=== PATIENT | male | born 1955 | race American Indian/Alaskan Native ===

== ENCOUNTER 2017-07-01 11:29 | Emergency (ER) | payer SELFPAY ==
[2017-07-01 11:54] VITALS: BP 112/73
[2017-07-01] MEDS ORDERED: NORCO 5/325 PO ONE (14:28)
[2017-07-01] MEDS ORDERED: ZOFRAN ODT PO ONE (14:28)
--- NOTE | 2017-07-01 14:28 | Emergency Department Report ---
ED Back Pain/Injury HPI - General Chief Complaint: Back Pain/Injury Stated Complaint: KNEES/WAIST/BACK PAIN Time Seen by Provider: 07/01/17 13:45 Source: patient Limitations: No Limitations - History of Present Illness Initial Comments: 61-year-old male past medical history GERD, peptic ulcer presents with complaint of chronic hand and bilateral knee pain. States that his hands and knees have been aching him to have intermittent swelling. Denies fevers or chills denies any direct trauma. Patient is awake alert and oriented 3 states he cannot take NSAIDs because he has an ulcer. 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 Patient is ambulatory without assistance Onset/Timin -: year(s) Similar Symptoms Previously: Yes Place: home, work Severity: moderate Severity scale (0 -10): 5 Quality: aching Consistency: intermittent - Related Data Previous Rx's Medication Instructions Recorded Last Taken Type Acetaminophen 500 mg PO Q6H PRN #30 capsule 07/01/17 Unknown Rx traMADol [Ultram 50 MG tab] 50 mg PO Q6HR PRN #8 tablet 07/01/17 Unknown Rx Allergies Allergy/AdvReac Type Severity Reaction Status Date / Time aspirin Allergy Hives Verified 07/01/17 11:51 ED Review of Systems ROS: Stated complaint: KNEES/WAIST/BACK PAIN Other details as noted in HPI Constitutional: denies: chills, fever Eyes: denies: eye pain, eye discharge, vision change ENT: denies: ear pain, throat pain Respiratory: denies: cough, shortness of breath, wheezing Cardiovascular: denies: chest pain, palpitations Endocrine: no symptoms reported Gastrointestinal: denies: abdominal pain, nausea, diarrhea Genitourinary: denies: urgency, dysuria Musculoskeletal: as per HPI, joint swelling, arthralgia. denies: back pain Skin: denies: rash, lesions Neurological: denies: headache, weakness, paresthesias Psychiatric: denies: anxiety, depression Hematological/Lymphatic: denies: easy bleeding, easy bruising ED Past Medical Hx - Past Medical History Previous Medical History?: No - Surgical History Past Surgical History?: No - Social History Smoking Status: Never Smoker Substance Use Type: None - Medications Home Medications: Home Medications Medication Instructions Recorded Confirmed Last Taken Type Acetaminophen 500 mg PO Q6H PRN #30 capsule 07/01/17 Unknown Rx traMADol [Ultram 50 MG tab] 50 mg PO Q6HR PRN #8 tablet 07/01/17 Unknown Rx ED Physical Exam - General Limitations: No Limitations General appearance: alert, in no apparent distress - Head Head exam: Present: atraumatic, normocephalic - Eye Eye exam: Present: normal appearance, PERRL, EOMI - ENT ENT exam: Present: mucous membranes moist - Neck Neck exam: Present: normal inspection - Respiratory Respiratory exam: Present: normal lung sounds bilaterally. Absent: respiratory distress - Cardiovascular Cardiovascular Exam: Present: regular rate, normal rhythm. Absent: systolic murmur, diastolic murmur, rubs, gallop - GI/Abdominal GI/Abdominal exam: Present: soft, normal bowel sounds - Rectal Rectal exam: Present: deferred - Extremities Exam Extremities exam: Present: normal inspection, tenderness (bilateral hand and knee pain) - Back Exam Back exam: Present: normal inspection - Neurological Exam Neurological exam: Present: alert, oriented X3, CN II-XII intact, normal gait - Psychiatric Psychiatric exam: Present: normal affect, normal mood - Skin Skin exam: Present: warm, dry, intact, normal color. Absent: rash ED Course Vital Signs 07/01/17 11:52 Temperature 99 F Pulse Rate 80 Respiratory 18 Rate Blood Pressure 112/73 O2 Sat by Pulse 97 Oximetry ED Medical Decision Making - Medical Decision Making A/P: Arthralgia, joint pain 1-x-ray show mild degenerative changes no fractures 2-Tylenol when necessary, short course tramadol when necessary 3-pt is ambulatory with strength 5 out of 5 all extremities, follow-up with primary care Critical care attestation.: If time is entered above; I have spent that time in minutes in the direct care of this critically ill patient, excluding procedure time. ED Disposition Clinical Impression: Arthralgia Qualifiers: Joint pain location: hand Laterality: bilateral Qualified Code(s): M25.541 - Pain in joints of right hand; M25.542 - Pain in joints of left hand; M25.542 - Pain in joints of left hand Knee pain, bilateral Qualifiers: Chronicity: acute Qualified Code(s): M25.561 - Pain in right knee; M25.562 - Pain in left knee; M25.562 - Pain in left knee Disposition: DC-01 TO HOME OR SELFCARE Is pt being admited?: No Does the pt Need Aspirin: No Condition: Stable Instructions: Arthralgia (ED), Musculoskeletal Pain (ED) Prescriptions: Acetaminophen 500 mg PO Q6H PRN #30 capsule PRN Reason: Pain traMADol [Ultram 50 MG tab] 50 mg PO Q6HR PRN #8 tablet PRN Reason: Pain Referrals: [facility] [Outside] - 3-5 Days [facility] [Outside] - 3-5 Days Forms: Work/School Release Form(ED) Time of Disposition: 15:36
--- NOTE | 2017-07-01 16:57 | XRay Report ---
FINAL REPORT PROCEDURE: XR HAND BILAT 2V TECHNIQUE: Two views each hand HISTORY: b/l hand pain COMPARISON: No prior studies are available for comparison. 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 No definite evidence of acute fracture seen at this time. IMPRESSION: No acute fracture Scattered degenerative change
--- NOTE | 2017-07-01 16:58 | XRay Report ---
FINAL REPORT PROCEDURE: XR KNEE BILAT 1-2V TECHNIQUE: Two views each knee HISTORY: knee pain COMPARISON: No prior studies are available for comparison. FINDINGS: Mild degenerative changes of the left and right knee. No effusion or fracture of either knee. No dislocation. IMPRESSION: Mild degenerative changes. No fracture or dislocation
== END 2017-07-01 15:58 | disposition home or self-care (01) ==
LOC: ED 11:29
DX: M25.541 Pain in joints of right hand (principal); M25.542 Pain in joints of left hand; M25.561 Pain in right knee; M25.562 Pain in left knee; Z88.8 Allergy status to other drugs, medicaments and biological substances
CPT/HCPCS: 99283; Q0162